=== PATIENT | female | born 1940 | race Caucasian/White ===

== ENCOUNTER 2017-08-12 03:38 | Inpatient (IN) ==
[2017-08-12] MEDS ORDERED: CYCLOBENZAPRINE 10 MG TABLET PO STA (04:30)
[2017-08-12] MEDS ORDERED: HYDROmorphone 2 MG/1 ML VIAL IV STA (04:30)
[2017-08-12] MEDS ORDERED: ONDANSETRON 4 MG/2 ML VIAL IV STA (04:31)
[2017-08-12] MEDS ORDERED: ONDANSETRON 4 MG/2 ML VIAL ONE ×4 (04:34→11:56)
[2017-08-12] MEDS ORDERED: CYCLOBENZAPRINE 10 MG TABLET ONE (04:34)
--- NOTE | 2017-08-12 04:37 | Emergency Department Note ---
INikita Gwan, am scribing for, and in the presence of, Amanda Diaz DO 03:49 . IJoe Debra, DO, personally performed the services described in this documentation, ascribed by Lauro Shelton in my presence, and it is both accurate and complete 437 . Arrival - Arrival Stated Complaint: fall Mode of Arrival: Stretcher Limitations: No Limitations Source: Patient, EMS, Old Records Reviewed, RN Notes Reviewed Time Seen by Provider: 08/12/17 03:44 - History of Present Illness HPI Narrative: Patient is a 76 y/o female, with a hx of multiple Myeloma (with nightly chemotherapy treatment)and Osteoporosis, who presents to the ED with a c/o edema and pain to right ankle/foot with an onset this morning s/p fall. Patient stated that she got out of bed to get a glass of water when she fell causing injury to her right ankle/foot area. Daughter confirmed that patient walks with a walker daily and that the patient suffers from chronic back pain. Patient confirmed that s/p fall, she was unable to get up by herself. Patient denies hitting her head or any periods of LOC. No other problems/complaints reported in ED. Onset (ago): minute(s) Consistency: constant Severity: moderate Allergies/Adverse Reactions: Allergies Allergy/AdvReac Type Severity Reaction Status Date / Time aspirin Allergy Unknown/Unable Verified 08/12/17 04:02 to obtain morphine Allergy Unknown/Unable Verified 08/12/17 04:02 to obtain Review of System - Review of System 12 point system: reviewed and no additional remarkable complaints except as stated - Review of System Constitutional: Absent: chills, fever Head/Ears/Nose/Throat: Absent: earache, epistaxis Respiratory: Absent: cough, wheezing Cardiovascular: Absent: chest pain, palpitations, orthopnea Musculoskeletal: Present: as per HPI, other (pain in right ankle and right foot) . Absent: arm pain, back pain, leg pain, neck pain Medical,Surgical,& Family Hx - Medical History Cardio: History of: Hypertension Endocrine: History of: Dyslipidemia No history of: Diabetes Mellitus (IDDM), Diabetes Mellitus (NIDDM) Respiratory: No history of: Asthma, COPD Renal: No history of: Renal Problems Gastrointestinal: History of: GERD Hematology: History of: Bleeding Problems (MYELOMA- AT THIS TIME - ON TREATMENT) - Surgical History HEENT Surgeries: Surgical HX of: Tonsilectomy & Adenoidectomy Abdominal Surgeries: Surgical HX of: Appendectomy Reproductive Surgeries: Surgical HX of;: Hysterectomy - Social History Smoking Status: Never smoker Exam Vital Signs: Vital Signs Temperature 100.5 F H 08/12/17 03:38 Pulse Rate 90 08/12/17 03:38 Respiratory Rate 20 08/12/17 03:38 Blood Pressure 153/79 08/12/17 03:38 O2 Sat by Pulse Oximetry 91 L 08/12/17 03:38 - General General appearance: alert, in no apparent distress, other (Patient is pale.) - Head Head exam: Present: atraumatic, normocephalic - Eye Eye exam: Present: normal appearance, PERRL, EOMI - ENT ENT exam: Present: normal oropharynx, mucous membranes moist, TM's normal bilaterally, normal external ear exam - Neck Neck exam: Present: full ROM, trachea midline. Absent: tenderness - Chest Chest inspection: Present: symmetric chest wall rise. Absent: tenderness - Respiratory Respiratory exam: Present: normal lung sounds bilaterally. Absent: respiratory distress - Cardiovascular Cardiovascular exam: Present: regular rate, normal rhythm, normal heart sounds. Absent: murmur - Abdominal Exam Abdominal exam: Present: soft, normal bowel sounds. Absent: distention, tenderness - Extremities Exam Extremities exam: Present: full ROM, tenderness (Patient has mild edema noted to right foot/ankle area. Patient is able to wiggle toes and good pulses are noted. ) - Back Exam Back exam: Present: full ROM. Absent: tenderness - Neurological Exam Neurological exam: Present: alert, oriented X3, CN II-XII intact. Absent: motor sensory deficit - Psychiatric Psychiatric exam: Present: normal affect, normal mood - Skin Skin exam: Present: other (Patient has mild edema noted to right foot/ankle area. Patient is pale in appearance.) Course Course Narrative: spoke with DR Tidwell who will see pt in hospital , pt will be kept NPO. pt will be admitted to hospitalist service . awaiting labs. Disposition Clinical Impression: Fibula fracture Case discussed with: patient, patient's family Disposition: Still a Patient Condition: Stable Time of Disposition: 06:25
[2017-08-12] MEDS ORDERED: HYDROmorphone 2 MG/1 ML VIAL ONE ×2 (05:22→11:56)
[2017-08-12 06:47] LABS: Basophils % 0.6 % (0.0-0.8); Eosinophils % 0.6 % (0.00-10.9); Hematocrit 33.3 VOL% (35.7-47.0); Hemoglobin 11.1 GM/DL (12.0-16.0); Immature Granulocytes % 0.3 %; Immature Granulocytes Absolute 0.01 #; Lymphocytes # 0.6 10*3/uL (1.4-4.0); Lymphocytes % 16.4 % (21.3-54.2); Mean Corpuscular HGB Conc 33.3 GM/DL (32-36); Mean Corpuscular Hemoglobin 31 PG (27-34); Mean Corpuscular Volume 93.8 FL (87-102); Mean Platelet Volume 9.9 FL (9.6-12.0); Neutrophils # 1.7 10*3/uL (1.4-7.4); Neutrophils % 51.1 % (38.7-73.9); Platelet Count 178 T/CUMM (130-400); Red Blood Count 3.55 MC/CUMM (3.8-5.5); Red Cell Distribution Width 14.5 % (9.3-17.3); White Blood Count 3.4 T/CUMM (4-12)
[2017-08-12 06:50] LABS: PT Patient Result 10.6 SECS
--- NOTE | 2017-08-12 06:54 | XRay Report ---
XR chest 1V portable Indication: Respiratory preoperative evaluation Comparison: None available Findings: The heart and mediastinum are normal in size and configuration. The pulmonary vascularity is normal in caliber. Lung volumes are increased with prominent bronchial markings. Linear densities are present in the lung bases. No other lung infiltrates, effusions, pneumothorax or other abnormality is demonstrated. Impression: Chronic lung changes. Linear densities lung bases could indicate scarring or atelectasis. PROCEDURE INTERPRETED AT [facility] DEPARTMENT OF RADIOLOGY Final Report Signed by: Dr. Zia Castro
--- NOTE | 2017-08-12 07:08 | Orthopedic Consult Note ---
History of Present Illness Chief complaint: Fracture dislocation right ankle History of present illness: Ms. Schneider is a 76 year old female See dictated reports Diagnosis: Trimalleolar fracture dislocation right ankle Plan: Recommended ORIF. Discussed. Agrees Allergies Allergy/AdvReac Type Severity Reaction Status Date / Time aspirin Allergy Unknown/Unable Verified 08/12/17 04:02 to obtain morphine Allergy Unknown/Unable Verified 08/12/17 04:02 to obtain Medical,Surgical,& Family Hx - Medical History Cardio: History of: Hypertension Endocrine: History of: Dyslipidemia No history of: Diabetes Mellitus (IDDM), Diabetes Mellitus (NIDDM) Respiratory: No history of: Asthma, COPD Renal: No history of: Renal Problems Gastrointestinal: History of: GERD Musculoskeletal: History of: Back/Neck Problems Hematology: History of: Bleeding Problems (MYELOMA- AT THIS TIME - ON TREATMENT) - Surgical History HEENT Surgeries: Surgical HX of: Tonsilectomy & Adenoidectomy Abdominal Surgeries: Surgical HX of: Appendectomy Reproductive Surgeries: Surgical HX of;: Hysterectomy - Social History Smoking Status: Never smoker Frequency of Alcohol Use: None Type of Drug Use: None Exam - Constitutional Vitals: Period Temp Pulse Resp BP Sys/Hernandez Pulse Ox Last 24 Hr 100.5 F-100.5 F 90-90 20-20 153-153/79-79 91 Results - Labs CBC & BMP: 08/12/17 06:25
[2017-08-12 07:10] LABS: Band Neutrophils 1 % (0-10); Eosinophils 1 % (0-10); Hypochromasia 1+; Lymphocytes 19 % (20-55); Ovalocytes Slight; Platelet Estimate Normal; Segmented Neutrophils 54 % (50-85); Total Cells Counted 100
[2017-08-12 07:12] LABS: Alanine Aminotransferase 18 U/L (13-56); Albumin 2.9 G/DL (3.4-5.0); Alkaline Phosphatase 53 U/L (45-117); Aspartate Amino Transferase 16 U/L (0-37); Bilirubin,Total < 0.39 MG/DL (0.2-1.0); Blood Urea Nitrogen 17 MG/DL (7-18); Calcium 8.2 MG/DL (8.5-10.1); Glucose 79 MG/DL (74-106); Osmolality,Calculated 281.3 MOS/KG (273-304); Potassium 3.9 MMOL/L (3.5-5.1); Sodium 141 MMOL/L (136-145); Total Protein 5.1 G/DL (6.4-8.3)
[2017-08-12 07:20] LABS: Amorphous Crystals,Urine Few /HPF (Few); Apearance,Urine CLOUDY (Clear); Bilirubin,Urine Negative (Negative); Blood, Urine Negative (Negative); Glucose,Urine (UA) Negative (Negative); Ketones,Urine Negative (Negative); Nitrite,Urine Negative (Negative); Protein,Urine 30 MG/DL; RBC,Urine 1 /HPF (0-4); Urine Color Yellow (Yellow); Urine Specific Gravity 1.008 (1.001-1.035); Urine Urobilinogen < 2.0 EU/DL (0.2-1.0)
[2017-08-12] MEDS ORDERED: ceFAZolin 1,000 MG VIAL ONE (07:42)
--- NOTE | 2017-08-12 08:04 | CT Report ---
CT right ankle without contrast August 12, 2017 Indication: Fracture Comparison radiographs from same date at 1946 hours Findings: Comminuted distal fibular fracture with coronal fracture through the posterior tibial plafond. Mildly displaced transverse fracture through the medial malleolus. Hematoma at the fracture sites. No evidence of tendinous entrapment. Tibiotalar alignment is maintained on nonweightbearing imaging. No additional fractures are demonstrated. Impression: Comminuted trimalleolar fracture PROCEDURE INTERPRETED AT [facility] DEPARTMENT OF RADIOLOGY Final Report Signed by: Pato Mcnulty
--- NOTE | 2017-08-12 08:06 | XRay Report ---
Exam: 3 view right ankle Exam date: August 12, 2017 at 0421 hours Indication: Fall with deformity and pain Comparison: No relevant comparisons Findings: Comminuted trimalleolar fracture with widening of the medial mortise. Diffuse soft tissue swelling.. Impression: 1. Comminuted trimalleolar fracture with mortise instability PROCEDURE INTERPRETED AT [facility] DEPARTMENT OF RADIOLOGY Final Report Signed by: Pato Mcnulty
--- NOTE | 2017-08-12 08:13 | Hospitalist History & Physical ---
History of Present Illness Chief complaint: right ankle pain and swelling after a fall History of present illness: Ms. Schneider is a 76 year old female who presents with a fall and right ankle pain and swelling. She was found to have an ankle fracture. She states that this morning around 2am, she got out of bed to get a glass of water. She fell on the floor. Her daughter heard the fall, and the daughter states that she found her mother on her left side. Patient denies any CP/palpitations/vision changes/SOB/dizziness/lightheadness before or after the fall. There were no LOC/ bowel,bladder incontinence/tongue biting or injury. Patient did not hit her head. Daughter states that patient has been more unsteady since resuming chemotherapy for her multiple myeloma and since taking the pain medications. Patient uses a walker. She has multiple myeloma and has been on thalidomide/ dexamethasone for the past 3 months. She was just started on velcade 3 days ago. She receives care from Dr. Smitha Bond at the [facility] in [place], [place]. Patient was just seen three days ago, and her fentanyl patch was increased from 150mcg to 175mcg. Patch change starts today. Patient has a low grade fever and is requiring 3L of oxygen. Patient denies any fevers/chills/cough/dysuria/diarrhea. Daughter states that patient cannot walk 1 block without SOB or CP. She cannot walk up a flight of stairs. She has been experiencing more dyspnea upon exertion. She states that over the past 3 months, she has been more deconditioned. Before then, she was able to walk longer distances. She does not clean around the house. She just does some mild cleaning in her room. Yesterday , she needed help with showering. She is able to feed herself. Home Medications Medication Instructions Recorded Confirmed Type Bortezomib [Velcade] 0 mg SUBCUT Q7DAY 08/12/17 08/12/17 History Cyanocobalamin (Vitamin B-12) 1,000 mcg PO DAILY 08/12/17 08/12/17 History [Vitamin B-12] Dexamethasone [Dexamethasone Tab] 20 mg PO DAILY 08/12/17 08/12/17 History Furosemide Tab [Lasix Tab] 20 mg PO DAILY 08/12/17 08/12/17 History Gabapentin Cap/Tab [Neurontin 600 mg PO BID 08/12/17 08/12/17 History Cap/Tab] Hydrocodone/Acetaminophen [Lortab 1 each PO Q4-6H PRN 08/12/17 08/12/17 History 10-325 mg Tablet] Metoprolol Tartrate 25 mg PO BID 08/12/17 08/12/17 History Multivitamin [Multivitamins] 1 each PO DAILY 08/12/17 08/12/17 History Omeprazole [Prilosec] 20 mg PO DAILY 08/12/17 08/12/17 History Potassium Chloride 10 meq PO DAILY 08/12/17 08/12/17 History Simvastatin [Zocor] 80 mg PO BEDTIME 08/12/17 08/12/17 History Thalidomide [Thalomid] 100 mg PO BEDTIME 08/12/17 08/12/17 History Zoledronic Acid [Zometa] 4 mg IV DIRECTED 08/12/17 08/12/17 History amLODIPine [Norvasc] 10 mg PO DAILY 08/12/17 08/12/17 History fentaNYL [Fentanyl 100 mcg/hr 1 patch TRANSDERM Q3DAY 08/12/17 08/12/17 History Patch] fentaNYL [Fentanyl 75 mcg/hr Patch] 1 patch TRANSDERM Q3DAY 08/12/17 08/12/17 History Allergies Allergy/AdvReac Type Severity Reaction Status Date / Time aspirin Allergy Unknown/Unable Verified 08/12/17 04:02 to obtain morphine Allergy Unknown/Unable Verified 08/12/17 04:02 to obtain Medical,Surgical,& Family Hx - Medical History Cardio: History of: Hypertension Endocrine: History of: Dyslipidemia, Endocrine Problems (osteoporosis) No history of: Diabetes Mellitus (IDDM), Diabetes Mellitus (NIDDM) Respiratory: No history of: Asthma, COPD Renal: No history of: Renal Problems Gastrointestinal: History of: GERD Musculoskeletal: History of: Back/Neck Problems Hematology: History of: Anemia (b12 deficiency), Bleeding Problems (MYELOMA- AT THIS TIME - ON TREATMENT), Hematologic Cancer (multiple myeloma) - Surgical History HEENT Surgeries: Surgical HX of: Tonsilectomy & Adenoidectomy Abdominal Surgeries: Surgical HX of: Appendectomy Reproductive Surgeries: Surgical HX of;: Hysterectomy - Social History Smoking Status: Never smoker Frequency of Alcohol Use: None Type of Drug Use: None 12 point system: reviewed and no additional remarkable complaints except as stated Exam - Constitutional Vitals: Period Temp Pulse Resp BP Sys/Hernandez Pulse Ox Last 24 Hr 100.5 F-100.5 F 90-90 20-20 153-153/79-79 91 General appearance: no acute distress, over weight - Head Head exam: Present: normal inspection - Eye Eye exam: Present: EOMI. Absent: scleral icterus Pupils: Present: SEJAL - ENT ENT exam: Present: other (dry oral mucosa, dentures) - Respiratory Respiratory exam: Present: clear to auscultation bilaterally. Absent: rales, rhonchi, wheezes - Cardiovascular Cardiovascular exam: Present: regular rate and rhythm. Absent: diastolic murmur , systolic murmur - GI/Abdominal GI/Abdominal exam: Present: normal bowel sounds, soft. Absent: tenderness - Extremities Exam Extremities exam: Present: edema (1-2+ edema in both LEs, right ankle: significant swelling, tenderness, and ecchymosis in medial malleoloar area; able to move toes; 2+ distal pulses; foot is warm but not increased compared to left) Results - Labs CBC & BMP: 08/12/17 06:25 08/12/17 06:25 - Impressions Patient is a 76 yo female who fell and suferred a right ankle fracture. Active Issues: 1. Mechanical fall 2. Trimalleoloar fracture dislocation of right ankle. She is undergoing an intermediate risk surgery and she has poor functional status. Will obtain an EKG. It is not clear the reason for her LANDRY. Risk is at least intermediate for now. Her daughter has been informed and understands. 3. Hypoxia, patient's o2 saturations were 92% on 3L. Cxray showing possible atelectasis 4. Low grade fevers 5. Comorbid conditions: chronic low back pain, chronic opioid use, multiple myeloma, HTN, dyslipidemia, GERD, osteoporosis, b12 deficiency Plan: -noted plan for ORIF today. Will obtain an EKG. Stress dose of hydrocortisone since she has been on dexamethasone 20mg qwk for the past 3 months. Pain control. Will control pain with parenteral agents for now. Given her fevers, will avoid fentanyl patch for now since there could be increased absorption in febrile states. Monitor h/h. Monitor rest of cell lines given recent chemotherapy. PT/OT. Vitamin D and calcium. Monitor o2 saturations and encourage IS. May need CT with PE protocol if hypoxia continues. Continue rest of home medications as appropriate. DVT and GI prophalaxis. Will start lovenox as long as it is okay from a bleeding standpoint and with orthopedics. The plan of care may be modified as more information becomes available. - Diagnostic Findings Procedure: Chest x-ray: report reviewed by me (chronic lung changes), X-ray: pending (ankle: trimalleoloar fraacture discolation of right ankle)
--- NOTE | 2017-08-12 08:16 | XRay Report ---
XR foot 2V RT Indication: Pain after falling injury Comparison: None available Findings: There is fracture dislocation of the ankle, incompletely visualized. No other evidence of fracture seen. The alignment of the joints appears normal. Mild first metatarsophalangeal joint degenerative change is present. No soft tissue abnormality is seen. Impression: Fracture dislocation of ankle, see ankle x-ray. No other fracture seen. PROCEDURE INTERPRETED AT [facility] DEPARTMENT OF RADIOLOGY Final Report Signed by: Dr. Zia Castro
[2017-08-12] MEDS ORDERED: HYDROmorphone 2 MG/1 ML VIAL IV PRN ×2 (08:33→12:21)
[2017-08-12] MEDS ORDERED: MIDAZOLAM 2 MG/2 ML VIAL ONE ×2 (08:59→11:54)
[2017-08-12] MEDS ORDERED: fentaNYL 100 MCG/2 ML VIAL ONE ×2 (08:59→11:54)
[2017-08-12] MEDS ORDERED: PROPOFOL 200 MG/20 ML VIAL IV ONE ×2 (09:00→11:55)
[2017-08-12] MEDS ORDERED: ROCURONIUM 100 MG/10 ML VIAL IV ONE (09:00)
[2017-08-12] MEDS ORDERED: ROPIVACAINE 0.5% 30 ML VIAL ONE (09:00)
[2017-08-12] MEDS ORDERED: PHENYLEPHRINE 1 MG/10 ML SYRINGE IV ONE (09:00)
[2017-08-12] MEDS ORDERED: methylPREDNISolone SOD SUC 125 MG/2 ML VIAL ONE (09:00)
[2017-08-12] MEDS ORDERED: LIDOCAINE 100 MG/5 ML SYRINGE ONE (09:00)
--- NOTE | 2017-08-12 10:59 | Anesthesia Procedures ---
Anesthesia Procedures - Nerve Blocks Nerve Block Consent: Requested by surgeon for postoperative pain control Surgical Procedure: right ORIF of ankle Main Anesthetic: general anesthesia Location: other Position: supine (slight bump to left) Type of Block: Right: Popliteal Patient Consent: Patinet consented for above nerve block., Risks and benefits were discussed with patient,including infection,, bleeding,injury to surrounding structures, seizure, temporary nerve, Patient understands and accepts potential risks/benefits and agrees to ASA Monitors on: pulse oximetry, EKG, BP cuff, oxygen via Local Anesthetic: Local (1.5% Lidocaine) used to numb skin, 0.5% Bupivicaine Ultrasound Used to: Recognize Landmarks Inject slowly in 5cc increments with:: Negative aspitation of heme Patient vitals signs stable throughout procedure.: Patient tolertaed the procedure well with no apparent complications.
[2017-08-12] MEDS ORDERED: MAGNESIUM HYDROXIDE SUSP 30 ML UDCUP PO PRN (11:36)
[2017-08-12] MEDS ORDERED: LACTULOSE 20 GM/30 ML UDCUP PO PRN (11:36)
[2017-08-12] MEDS ORDERED: ONDANSETRON 4 MG/2 ML VIAL IV PRN ×2 (11:36→12:21)
[2017-08-12] MEDS ORDERED: BISACODYL 10 MG SUPP RECTAL PRN (11:36)
[2017-08-12] MEDS ORDERED: PROMETHAZINE 25 MG/1 ML VIAL IM PRN (11:36)
[2017-08-12] MEDS: HYDROmorphone 2 MG/1 ML VIAL IV PRN ×4 (11:40→22:15)
--- NOTE | 2017-08-12 11:52 | Anesthesia Post-Op ---
Anesthesia Post OP - Post Ansesthetic Evaluation Patient seen in post op: Yes Resp: within normal limits CV: within normal limits Mental: within normal limits Temp: within normal limits [id number]-[id number]: within normal limits Nausea and Vomiting: within normal limits Pain: within normal limits
[2017-08-12] MEDS ORDERED: SEVOFLURANE 1 UNIT/15 MINUTE INH ONE (11:54)
--- NOTE | 2017-08-12 12:01 | XRay Report ---
Exam: XR ankle 3V RT Exam date 08/12/2017 1014 AM Indication: Postop trimalleolar fixation Comparison: No relevant comparisons Findings: 4 static interoperative fluoroscopic images submitted for interpretation. Fluoroscopy time recorded at 4.4 seconds with 0.82510 mGym2 Patient is status post open reduction internal fixation of trimalleolar fracture. Lateral plate stabilizes distal fibula with percutaneous screws transfixing the medial malleolus.. Alignment is anatomic. No evidence of hardware failure. Postoperative changes within the adjacent soft tissues. Impression: Expected postoperative appearance of right ankle trimalleolar fracture fixation PROCEDURE INTERPRETED AT [facility] DEPARTMENT OF RADIOLOGY Final Report Signed by: Pato Mcnulty
[2017-08-12] MEDS: CALCIUM (CARBONATE)/VITAMIN D 600 MG-400 UNIT TABLET PO SCH ×2 (14:19→21:16)
[2017-08-12] MEDS: ENOXAPARIN 40 MG/0.4 ML SYRINGE SUBCUT SCH (14:20)
[2017-08-12] MEDS: METOPROLOL TARTRATE 25 MG TABLET PO SCH ×2 (14:20→21:16)
[2017-08-12] MEDS: amLODIPine 5 MG TABLET PO SCH (14:20)
[2017-08-12] MEDS: PANTOPRAZOLE 40 MG VIAL IV SCH (14:20)
[2017-08-12] MEDS: GABAPENTIN 600 MG TABLET PO SCH ×2 (14:21→21:16)
[2017-08-12] MEDS: CYANOCOBALAMIN 100 MCG TABLET PO SCH (14:21)
[2017-08-12] MEDS: LACTATED RINGERS 1,000 ML IV SCH (15:09)
[2017-08-12] MEDS: HYDROCORTISONE 100 MG VIAL IV SCH ×2 (15:20→21:17)
--- NOTE | 2017-08-12 16:47 | Consultation ---
DATE OF CONSULT: 08/12/2017 HISTORY: A 76-year-old white female, ambulator, fell at home early this morning. She had immediate pain with deformity about right ankle and was brought to [facility], where she was francesco gnosed with trimalleolar fracture dislocation. Due to her numerous medical problems including underg oing treatment for myeloma, she has been admitted to the medical service. I have been asked to evalu ate regarding orthopedic injury. PHYSICAL EXAMINATION GENERAL: Thin, white female, who is in mild discomfort secondary to right ankle. No other complaint s. EXTREMITIES: She has no pain with gentle range of motion about either upper extremity or by the left lower. On the right side, there is mild deformity about the right ankle with some ecchymosis. No s kin changes. No open injury. She can wiggle her toes. Capillary refill is brisk. No pain proximal to the knee or about the right hip. Radiographs confirm a trimalleolar fracture dislocation, right ankle. IMPRESSION: TRIMALLEOLAR FRACTURE DISLOCATION, RIGHT ANKLE. PLAN: I have discussed her and her daughter, the diagnosis, treatment recommendations including need for open reduction and internal fixation. She will made n.p.o. later this morning, we will proceed with ORIF. We have also discussed the postoperative course and the need for physical therapy to safe ly mobilize, nonweightbearing. They appeared to understand and agree with the plan.
--- NOTE | 2017-08-12 16:47 | Operative Note ---
DATE: 08/12/2017 PREOPERATIVE DIAGNOSIS: TRIMALLEOLAR FRACTURE, RIGHT ANKLE. POSTOPERATIVE DIAGNOSIS: SAME. OPERATIVE PROCEDURE: ORIF, RIGHT ANKLE, TRIMALLEOLAR. SURGEON: Margarito Saucedo Jr., MD ANESTHESIA: General. INDICATIONS: A 76-year-old white female, fell earlier this morning, sustaining a displaced trimalleo lar ankle fracture dislocation. I discussed with her and her family the need for ORIF. She presents for procedure. OPERATIVE PROCEDURE: The patient was taken to the operating room and under general anesthetic, posit ioned in supine position. The right lower extremity positioned, prepped and draped in a usual steril e manner. She received the Ancef preoperatively. The limb was elevated, exsanguinated, and tourniqu et inflated to 300 mmHg. A longitudinal incision was made laterally over the right ankle. Sharp dis section was carried down through skin and subcutaneous tissue. The fracture hematoma was evacuated a nd the distal fibula fracture was identified and reduced and secured first with an interfragmentary s crew front to back and then a 10-hole plate was then contoured to fit along the lateral aspect to act as neutralization plate. The medial malleolus was then exposed through a small incision with carefu l blunt dissection. The talar dome looked good with no defect. The wound was irrigated, the fractur e reduced and secured with two 4.0 malleolar screws. Fluoroscopy was brought in to confirm reduction . The posterior malleolar fragment was also reduced anatomic. All wounds were irrigated and closed in layers using 0-Vicryl and 2-0 Vicryl and tisha. Sterile dressing and posterior splint was appli ed. Tourniquet was deflated at 48 minutes. She was taken to recovery room in stable condition.
[2017-08-12] MEDS ORDERED: SIMVASTATIN 80 MG TABLET PO SCH (21:00)
[2017-08-12] MEDS: ATORVASTATIN 40 MG TABLET PO SCH (21:16)
--- NOTE | 2017-08-13 06:49 | EKG Report ---
Stationary ECG Study [facility] ER Test Date: 08/12/2017 7:36:40 AM Pat Name: LIZ JOEL Department: Room: 323 Gender: F Rn Observation: : 1940 Requested by: Amanda Diaz Order Number: [id number] Reading MD: BELEM ORDONEZ Intervals [place] Rate: 68 P: 269 TN: 190 QRS: 75 QRSD: 98 T: -21 QT: 408 QTc: 425 Interpretive Statements SINUS RHYTHM ABNORMAL QRS-T ANGLE Electronically Signed On 08-13-17 11:19:57 CDT by BELEM ORDONEZ [email or web address]
[2017-08-13 07:00] LABS: Calcium 7.8 MG/DL (8.5-10.1); Free T4 (Free Thyroxine) 1.27 NG/DL (0.76-1.46); Magnesium 2.3 MG/DL (1.8-2.4); Thyroid Stimulating Hormone 0.515 uIU/ml (0.358-3.74)
[2017-08-13 07:20] LABS: Hematocrit 33.7 VOL% (35.7-47.0); Hemoglobin 10.6 GM/DL (12.0-16.0); Immature Granulocytes % 0.7 %; Immature Granulocytes Absolute 0.03 #; Lymphocytes # 0.6 10*3/uL (1.4-4.0); Lymphocytes % 13.1 % (21.3-54.2); Mean Corpuscular HGB Conc 31.5 GM/DL (32-36); Mean Corpuscular Hemoglobin 31 PG (27-34); Mean Corpuscular Volume 99.7 FL (87-102); Mean Platelet Volume 10.6 FL (9.6-12.0); Neutrophils # 2.8 10*3/uL (1.4-7.4); Neutrophils % 64.2 % (38.7-73.9); Platelet Count 151 T/CUMM (130-400); Red Blood Count 3.38 MC/CUMM (3.8-5.5); Red Cell Distribution Width 14.3 % (9.3-17.3); White Blood Count 4.4 T/CUMM (4-12)
[2017-08-13 08:03] LABS: Hypochromasia Slight; Lymphocytes 19 % (20-55); Platelet Estimate Adequate; Segmented Neutrophils 73 % (50-85); Total Cells Counted 100
[2017-08-13] MEDS: METOPROLOL TARTRATE 25 MG TABLET PO SCH (08:47)
[2017-08-13] MEDS: PANTOPRAZOLE 40 MG VIAL IV SCH (08:54)
[2017-08-13] MEDS ORDERED: fentaNYL 12 MCG/HR PATCH TRANSDERM SCH (09:00)
--- NOTE | 2017-08-13 09:08 | Hospitalist Progress Note ---
Hospitalist: Subjective Interval history: Patient underwent ORIF of right ankle. Yesterday, daughter noted signficant pain. Currently, pain is better controlled. Daughter wants to restart fentanyl patch. Patient has no complaints. She denies any SOB or CP. Exam - Constitutional Vitals: Period Temp Pulse Resp BP Sys/Hernandez Pulse Ox Last 24 Hr 97.0 F-100 F 49-74 16-20 91-159/46-73 91-97 General appearance: no acute distress, over weight - Head Head exam: Present: normal inspection - Eye Eye exam: Present: EOMI Pupils: Present: SEJAL - Respiratory Respiratory exam: Present: clear to auscultation bilaterally. Absent: rales, rhonchi, wheezes - Cardiovascular Cardiovascular exam: Present: bradycardia (regular rhythm) - GI/Abdominal GI/Abdominal exam: Present: normal bowel sounds, soft. Absent: tenderness - Extremities Exam Extremities exam: Present: edema - Neurological Exam Neurological exam: Present: alert (s/p right ORIF with dressing in place; 1-2+ BLE, edema in left ankle; normal ROM, no area of ecchymosis), oriented X3 - Psychiatric Psychiatric exam: Present: normal affect, normal mood Results - Labs CBC & BMP: 08/13/ 06:12 08/13/ 06:12 - Impressions Active Issues: 1. Mechanical fall 2. Trimalleolar fracture dislocation of right ankle s/p ORIF, POD#1 3. Hypoxia: patient is still requiring 3L of oxygen; suspect atelectasis; however, given history of multiple myeloma, will check for PE 4. Left ankle swelling: daughter is concerned about fracture; so, will obtain x- ray 5. Low grade fevers, resolved 6. Hypotension: may be 2nd to adrenal insufficiency since she has been on decadron in the past. She was started on hydrocortisone on yesterday. Will increase. Will also give 1L of fluids. 7. Chronic pain: on fentanyl patch; as long as blood pressure is adequate, will start with low dose patch Plan: as noted above + continue current care; PT/OT; will likely benefit from rehab; DVT prophalaxis.
[2017-08-13] MEDS ORDERED: SODIUM CHLORIDE 0.9% 100 ML IV ONE (09:25)
[2017-08-13] MEDS ORDERED: SODIUM CHLORIDE 0.9% 1,000 ML IV SCH (09:30)
--- NOTE | 2017-08-13 10:04 | CT Report ---
CT of the chest with intravenous contrast, PE protocol. 80 cc Omni 350. Axial images were obtained with 2-D and 3-D sagittal and coronal reconstructions. Indication: Hypoxia. Shortness of breath. No comparison study. The thyroid gland is normal in size. A hypoechoic mass is suggested in the right lobe. There is no supraclavicular or axillary lymphadenopathy. There is no evidence of pulmonary thromboembolism. The thoracic aorta is of normal caliber with mixed plaque in its wall. The heart is enlarged with left ventricular hypertrophy. There is coronary and mitral calcification. There are small bilateral pleural effusions. No adenopathy is seen. Calcified lymph nodes are seen in the left hilum and there is a calcified granuloma in the left upper lobe. There is atelectasis present within the lung bases. There are air bronchograms seen in both lung bases which could indicate concurrent pneumonia. The osseous structures are severely demineralized, with a mottled appearance. There are numerous thoracic compression fractures, some of which are prominent and some of which have undergone vertebroplasty. Healed rib fractures are also noted. Impression: 1. No evidence of pulmonary thromboembolism. 2. Bilateral basilar atelectasis, and suspected bilateral mild infiltrates. Small bilateral pleural effusions. 3. Cardiomegaly and atherosclerosis. 4. Abnormal appearance of the osseous structures, with a mottled appearance and multiple compression fractures and healed rib fractures. This could be due to severe osteoporosis, but multiple myeloma/metastatic disease is also in the differential The CT exam was performed using one or more of the following dose reduction techniques: Automated exposure control, adjustment of the mA and/or kV according to patient size, or use of iterative reconstruction technique. PROCEDURE INTERPRETED AT [facility] DEPARTMENT OF RADIOLOGY Final Report Signed by: Dr. Dorita Quintero
--- NOTE | 2017-08-13 10:07 | XRay Report ---
Left ankle, 3 views. Indication: Fall, edema and pain. There is marked soft tissue swelling about the ankle. Degenerative changes are noted at the ankle mortise. There are prominent posterior and plantar calcaneal spurs. There is spurring of the dorsal mid and hindfoot. There is a small calcification superior to the anterior talus. This could represent a small evulsion fracture or new osteophyte formation. No lytic or blastic lesions are noted. Impression: Soft tissue swelling. Possible dorsal hindfoot small avulsion fracture. Scattered degenerative changes, moderately severe. PROCEDURE INTERPRETED AT [facility] DEPARTMENT OF RADIOLOGY Final Report Signed by: Dr. Dorita Quintero
[2017-08-13] MEDS: CALCIUM (CARBONATE)/VITAMIN D 600 MG-400 UNIT TABLET PO SCH ×2 (10:27→21:27)
[2017-08-13] MEDS: GABAPENTIN 600 MG TABLET PO SCH ×2 (10:28→21:27)
[2017-08-13] MEDS: CYANOCOBALAMIN 100 MCG TABLET PO SCH (10:28)
[2017-08-13] MEDS: HYDROCORTISONE 100 MG VIAL IV SCH ×3 (10:40→21:24)
[2017-08-13] MEDS: POLYETHYLENE GLYCOL POWDER 17 GM PACK PO SCH (10:42)
--- NOTE | 2017-08-13 12:45 | Orthopedic Progress Note ---
Orthopedics - Subjective Interval history: Mrs. JOEL is a 76-year-old female postop day #1 following ORIF right ankle fracture performed by Dr. Pato Saucedo Junior. She is on the hospital service has a history of multiple myeloma and is managed with fentanyl patches provided through the [facility] system pain management physician. Her daughter is concerned that she is having some withdrawal type type symptoms. She has mild pain with respect to her right ankle. Good capillary refill to all toes. There is some edema present with respect to the contralateral left ankle. An x-ray of the left ankle today is negative for acute fracture dislocation or pathologic bone. She is being mobilized through physical therapy efforts. Mentation: Notify hospitalist of complaint of chest pain and suggest possible pain management consult if available. And knee-high MERE hose left lower extremity for peripheral edema. Exam - Constitutional Vitals: Period Temp Pulse Resp BP Sys/Hernandez Pulse Ox Last 24 Hr 97.0 F-98.8 F 49-72 16-20 91-159/46-73 91-97 Results - Labs CBC & BMP: 08/13/17 06:12 08/13/17 06:12
[2017-08-13] MEDS: LACTATED RINGERS 1,000 ML IV SCH (13:55)
[2017-08-13] MEDS: HYDROmorphone 2 MG/1 ML VIAL IV PRN (15:35)
[2017-08-13] MEDS: ENOXAPARIN 40 MG/0.4 ML SYRINGE SUBCUT SCH (15:54)
[2017-08-13] MEDS: amLODIPine 5 MG TABLET PO SCH (16:44)
--- NOTE | 2017-08-13 18:02 | Event Note ---
This is a delayed entry note. Patient's daughter is concerned that her mother is in acute opioid withdrawal because she is not receiving her home dose of fentanyl 150mcg. Patient was seen about 3pm with nursing field crop farming supervisor, Heather Apple. Patient's daughter states that her mother's symptoms were that she was sweating and was clammy. Daughter states that since patient has received norco about 2pm, withdrawal symptoms are now gone. Education provided. Daughter is aware that patient has been receiving opioid therapy, effects from fentanyl patch will start in 8-12 hours from onset of application, and that dose of fentanyl is limited by patient's hypotension. I don't feel comfortable starting patient at 150mcg (morphine equivalent of 300mg ) after surgery and in the setting of low blood pressures. Her blood pressure was low this morning. It has improved with increased in stress dose steroids and IVFs. Patient appears to be comfortable. She is smiling and joking. She denies any CP or SOB. After discussion, patient's daughter agrees to continue current pain regimen of prn norco and parenteral dilaudid. Will continue fentanyl patch. Dr. Bryant suggested pain medicine consult; so, consult has been placed.
[2017-08-13] MEDS: ATORVASTATIN 40 MG TABLET PO SCH (21:27)
[2017-08-14] MEDS: LACTATED RINGERS 1,000 ML IV SCH ×2 (03:05→23:09)
[2017-08-14 06:21] LABS: Hematocrit 31.5 VOL% (35.7-47.0); Hemoglobin 10.1 GM/DL (12.0-16.0); Immature Granulocytes % 0.4 %; Immature Granulocytes Absolute 0.02 #; Lymphocytes # 0.9 10*3/uL (1.4-4.0); Lymphocytes % 18.5 % (21.3-54.2); Mean Corpuscular HGB Conc 32.1 GM/DL (32-36); Mean Corpuscular Hemoglobin 31 PG (27-34); Mean Corpuscular Volume 95.5 FL (87-102); Mean Platelet Volume 10.4 FL (9.6-12.0); Monocytes # 0.7 10*3/uL (0.11-0.8); Monocytes % 14.1 % (1.7-12.7); Neutrophils # 3.3 10*3/uL (1.4-7.4); Platelet Count 162 T/CUMM (130-400); Red Cell Distribution Width 14.6 % (9.3-17.3); White Blood Count 4.9 T/CUMM (4-12)
[2017-08-14 06:54] LABS: Calcium 8.1 MG/DL (8.5-10.1); Magnesium 2.2 MG/DL (1.8-2.4); Osmolality,Calculated 290.6 MOS/KG (273-304); Potassium 4.1 MMOL/L (3.5-5.1)
[2017-08-14] MEDS ORDERED: FUROSEMIDE 40 MG/4 ML VIAL IV ONE (08:39)
[2017-08-14] MEDS: PANTOPRAZOLE 40 MG VIAL IV SCH (08:53)
[2017-08-14] MEDS: HYDROCORTISONE 100 MG VIAL IV SCH (08:54)
[2017-08-14] MEDS: ENOXAPARIN 40 MG/0.4 ML SYRINGE SUBCUT SCH (08:56)
[2017-08-14] MEDS: POLYETHYLENE GLYCOL POWDER 17 GM PACK PO SCH (08:57)
[2017-08-14] MEDS: GABAPENTIN 600 MG TABLET PO SCH ×2 (08:57→21:01)
[2017-08-14] MEDS: CALCIUM (CARBONATE)/VITAMIN D 600 MG-400 UNIT TABLET PO SCH ×2 (08:57→21:01)
[2017-08-14] MEDS: CYANOCOBALAMIN 100 MCG TABLET PO SCH (09:10)
--- NOTE | 2017-08-14 09:13 | XRay Report ---
Single view the chest. Indication: Shortness of breath. Comparison: August 12, 2017. The heart is enlarged with left ventricular hypertrophy. The pulmonary vasculature is prominent. Bilateral interstitial infiltrates show interval worsening. An alveolar component is developing on the right. No pneumothorax. No pleural effusion. Stable bony structures. Impression: Interval worsening. PROCEDURE INTERPRETED AT [facility] DEPARTMENT OF RADIOLOGY Final Report Signed by: Dr. Dorita uQintero
[2017-08-14] MEDS: HYDROmorphone 2 MG/1 ML VIAL IV PRN (10:17)
--- NOTE | 2017-08-14 10:21 | Hospitalist Progress Note ---
Assessment and Plan (1) Shortness of breath Status: Acute Assessment and plan: At this time IV fluids have been discontinued. Appears to be a volume issue causing shortness of breath. IV fluids have been discontinued. Chest x-ray shows worsening interstitial changes. Current Visit: Yes (2) Volume overload Status: Acute Assessment and plan: IV fluids have been discontinued. Lasix 40 mg IV every 6 hours. Cazares catheter replaced. Current Visit: Yes (3) Fibula fracture Status: Acute Assessment and plan: Now status post fracture repair. Continue with physical therapy. Current Visit: Yes Hospitalist: Subjective Interval history: The patient became more short of breath this morning sats dropped into the upper 80s. Nasal cannula replaced. Follow-up chest x-ray shows worsening infiltrates. Patient's IV fluids have been stopped. She has received 6 mg of Lasix at this time. She will continue with scheduled Lasix every 6 hours for the next 24 hours. Schedule nebulizer treatments have been started. Follow-up chest x-ray has been ordered for tomorrow. CBC BMP in a.m. Patient's had no fevers or chills. Exam - Constitutional Vitals: Period Temp Pulse Resp BP Sys/Hernandez Pulse Ox Last 24 Hr 94.9 F-98.4 F 53-92 16-18 103-141/52-69 89-93 General appearance: normal weight - Head Head exam: Present: normal inspection - Eye Pupils: Present: SEJAL - ENT ENT exam: Present: normal exam - Neck Neck exam: Present: normal inspection - Respiratory Respiratory exam: Present: rales, wheezes - Cardiovascular Cardiovascular exam: Present: regular rate and rhythm - GI/Abdominal GI/Abdominal exam: Present: normal bowel sounds - Extremities Exam Extremities exam: Present: normal inspection - Neurological Exam Neurological exam: Present: alert, oriented X3 - Psychiatric Psychiatric exam: Present: normal affect - Skin Skin exam: Present: normal color Results - Labs CBC & BMP: 08/14/17 06:00 08/14/17 06:00
[2017-08-14] MEDS: FUROSEMIDE 40 MG/4 ML VIAL IV SCH ×3 (10:30→23:32)
[2017-08-14] MEDS ORDERED: ALBUTEROL/IPRATROPIUM 3 ML NEB RESP TX ONE (11:30)
[2017-08-14 12:11] LABS: Apearance,Urine CLEAR (Clear); Bilirubin,Urine Negative (Negative); Blood, Urine Negative (Negative); Glucose,Urine (UA) Negative (Negative); Ketones,Urine Negative (Negative); Nitrite,Urine Negative (Negative); Protein,Urine Negative; RBC,Urine 2 /HPF (0-4); Urine Color Colorless (Yellow); Urine Specific Gravity 1.004 (1.001-1.035); Urine Urobilinogen < 2.0 EU/DL (0.2-1.0); WBC,Urine 1 /HPF (0-6)
[2017-08-14] MEDS: ALBUTEROL/IPRATROPIUM 3 ML NEB RESP TX SCH ×2 (13:36→20:18)
--- NOTE | 2017-08-14 16:22 | Orthopedic Progress Note ---
Orthopedics - Subjective Interval history: Ms. Cole is a 76-year-old female now postop day #2 following ORIF right ankle fracture performed by Dr. Margarito Saucedo Junior. She was having issues with pain control yesterday. Fentanyl patches have been adjusted and she is responding well. After Melvin (pain management) has been consulted. He was able to stand bearing weight on her left lower extremity today with physical therapy but is not ambulated. Globin is 10.1 hematocrit 31.5. She is contemplating discharge to home with home health and PT. Diuretic therapy with Lasix has been initiated and a Cazares catheter has been reinserted. Dr. Saucedo will resume orthopedic follow-up tomorrow. Exam - Constitutional Vitals: Period Temp Pulse Resp BP Sys/Hernandez Pulse Ox Last 24 Hr 97.0 F-98.4 F 53-77 16-18 103-141/52-64 89-96 Results - Labs CBC & BMP: 08/14/17 06:00 08/14/17 06:00
[2017-08-14] MEDS: ATORVASTATIN 40 MG TABLET PO SCH (21:01)
[2017-08-15] MEDS: ALBUTEROL/IPRATROPIUM 3 ML NEB RESP TX SCH ×3 (00:20→14:06)
[2017-08-15] MEDS: FUROSEMIDE 40 MG/4 ML VIAL IV SCH ×2 (06:05→10:34)
--- NOTE | 2017-08-15 06:11 | Pain Management Consult Note ---
Assessment and Plan (1) Chronic pain syndrome Status: Acute Assessment and plan: Patient is currently stable on the patch and oral medications and that IV Dilaudid I will continue those until discharge Current Visit: Yes History of Present Illness Chief complaint: Status post right knee surgery History of present illness: Ms. Schneider is a 76 year old female Patient status post right knee surgery is a chronic pain patient followed by Dr. Bond in [place]. Patient has adequate pain control at this time I checked on her yesterday and patient had appropriate pain medicines ordered. I have seen the patient this morning and discussed the case in detail with her and her son patient seems to be stable as far as pain management is concerned patient is not sure whether she is going home or go to inpatient physical therapy after discharge. I have offered to see her as an outpatient for pain management Home Medications Medication Instructions Recorded Confirmed Type Bortezomib [Velcade] 0 mg SUBCUT Q7D 08/12/17 08/12/17 History Cyanocobalamin (Vitamin B-12) 1,000 mcg PO QAM 08/12/17 08/12/17 History [Vitamin B-12] Dexamethasone [Dexamethasone Tab] 20 mg PO Q7D 08/12/17 08/12/17 History Furosemide Tab [Lasix Tab] 20 mg PO QAM 08/12/17 08/12/17 History Gabapentin Cap/Tab [Neurontin 600 mg PO BID 08/12/17 08/12/17 History Cap/Tab] Hydrocodone/Acetaminophen [Lortab 1 each PO Q4-6H PRN 08/12/17 08/12/17 History 10-325 mg Tablet] Metoprolol Tartrate 25 mg PO QAM 08/12/17 08/12/17 History Multivitamin [Multivitamins] 1 each PO QAM 08/12/17 08/12/17 History Omeprazole [Prilosec] 20 mg PO DAILY PRN 08/12/17 08/12/17 History Potassium Chloride 10 meq PO QAM 08/12/17 08/12/17 History Simvastatin [Zocor] 80 mg PO BEDTIME 08/12/17 08/12/17 History Thalidomide [Thalomid] 100 mg PO BEDTIME 08/12/17 08/12/17 History Zoledronic Acid [Zometa] 4 mg IV DIRECTED 08/12/17 08/12/17 History amLODIPine [Norvasc] 10 mg PO QAM 08/12/17 08/12/17 History fentaNYL [Fentanyl 100 mcg/hr 1 patch TRANSDERM Q3DAY 08/12/17 08/12/17 History Patch] fentaNYL [Fentanyl 75 mcg/hr Patch] 1 patch TRANSDERM Q3DAY 08/12/17 08/12/17 History Allergies Allergy/AdvReac Type Severity Reaction Status Date / Time aspirin Allergy Unknown/Unable Verified 08/12/17 04:02 to obtain morphine Allergy Unknown/Unable Verified 08/12/17 04:02 to obtain Medical,Surgical,& Family Hx - Medical History Cardio: History of: Hypertension Endocrine: History of: Dyslipidemia, Endocrine Problems (osteoporosis) No history of: Diabetes Mellitus (IDDM), Diabetes Mellitus (NIDDM) Respiratory: No history of: Asthma, COPD Renal: No history of: Renal Problems Gastrointestinal: History of: GERD Musculoskeletal: History of: Back/Neck Problems Hematology: History of: Anemia (b12 deficiency), Bleeding Problems (MYELOMA- AT THIS TIME - ON TREATMENT), Hematologic Cancer (multiple myeloma) - Surgical History HEENT Surgeries: Surgical HX of: Tonsilectomy & Adenoidectomy Abdominal Surgeries: Surgical HX of: Appendectomy Reproductive Surgeries: Surgical HX of;: Section (X2), Hysterectomy Orthopedic Surgeries: Surgical HX of;: Orthopedic Surgery (ORIF RIGHT ANKLE) - Family History Family History: Reports;: Family Cancer, Family Heart Disease, Family Hypertension, Family Stroke - Social History Smoking Status: Never smoker Frequency of Alcohol Use: None Type of Drug Use: None 12 point system: reviewed and no additional remarkable complaints except as stated Exam - Constitutional Vitals: Period Temp Pulse Resp BP Sys/Hernandez Pulse Ox Last 24 Hr 97.0 F-98.6 F 56-80 17-18 115-145/54-70 89-97 General appearance: no acute distress - Head Head exam: Present: normal inspection - Eye Eye exam: Present: EOMI Pupils: Present: SEJAL - ENT ENT exam: Present: normal exam Ear exam: Present: intact Mouth exam: Present: normal external inspection - Neck Neck exam: Present: normal inspection - Respiratory Respiratory exam: Present: clear to auscultation bilaterally - Cardiovascular Cardiovascular exam: Present: RRR - GI/Abdominal GI/Abdominal exam: Present: normal bowel sounds - Extremities Exam Extremities exam: Present: other (Right knee is tender) - Back Exam Back exam: Present: normal inspection - Neurological Exam Neurological exam: Present: alert, oriented X3, abnormal gait - Skin Skin exam: Present: normal color Results - Labs CBC & BMP: 08/14/17 06:00 08/14/17 06:00 Lab Results: I have reviewed the past 24 hour labs
[2017-08-15 07:27] LABS: Calcium 8.4 MG/DL (8.5-10.1); Osmolality,Calculated 290.6 MOS/KG (273-304); Potassium 2.9 MMOL/L (3.5-5.1)
--- NOTE | 2017-08-15 08:50 | XRay Report ---
Exam: XR chest 1V portable Date: 08/15/2017 4:00 AM Indication: Shortness of breath increasing infiltrate Comparison: 08/14/2017 Technical: AP Findings: Mild cardiomegaly is present. Low volume effusions with bibasilar atelectatic change and infiltrates are present. Old multiple left upper rib fractures with healed deformity is again noted. Arthritic change present shoulders. Previous vertebral plasty and prior cholecystectomy noted Impression: 1. Persistent bilateral infiltrates atelectatic change and effusions with underlying cardiac enlargement. Overall the findings appear similar to previous exam PROCEDURE INTERPRETED AT [facility] DEPARTMENT OF RADIOLOGY Final Report Signed by: Dr. Augusto Riggs
--- NOTE | 2017-08-15 09:00 | Orthopedic Progress Note ---
Orthopedics - Subjective Interval history: Comfortable splint clean dry and intact awaiting medical clearance before discharge instructed regarding nonweightbearing status. Follow-up as ordered. Exam - Constitutional Vitals: Period Temp Pulse Resp BP Sys/Hernandez Pulse Ox Last 24 Hr 97.0 F-98.6 F 57-80 17-20 115-148/54-77 89-97 Results - Labs CBC & BMP: 08/14/17 06:00 08/15/17 06:31
[2017-08-15] MEDS: POTASSIUM CHLORIDE 20 MEQ TABLET PO SCH ×2 (09:03→14:39)
[2017-08-15] MEDS: CALCIUM (CARBONATE)/VITAMIN D 600 MG-400 UNIT TABLET PO SCH (09:03)
[2017-08-15] MEDS: GABAPENTIN 600 MG TABLET PO SCH (09:04)
[2017-08-15] MEDS: POLYETHYLENE GLYCOL POWDER 17 GM PACK PO SCH (09:04)
[2017-08-15] MEDS: CYANOCOBALAMIN 100 MCG TABLET PO SCH (09:04)
[2017-08-15] MEDS: PANTOPRAZOLE 40 MG VIAL IV SCH (09:06)
[2017-08-15] MEDS: ENOXAPARIN 40 MG/0.4 ML SYRINGE SUBCUT SCH (09:08)
--- NOTE | 2017-08-15 09:50 | Physician Query Form ---
CLICK EDIT DOCUMENT TO SELECT QUERY ANSWER --> OK --> SIGN Joyce Cooper RN, CCDS Certified Clinical Electric Organ Assembler W) [phone] (f) [phone] [email or web address]: Make your selection(s) from the choices in EACH section by typing an "x" and enter comments in the comment section. Please use your independent medical judgment in providing your response. This request does not imply that any particular answer is desired or expected. CLINICAL INDICATORS: (Providers should not edit this section) The medical record indicates that the patient was admitted with an ankle fx, on the 16th: "suspected bilateral mild infiltrates", on the 17th: shortness of breath, volume overload (acute), "sat's dropped into the upper 80's", and the patient was placed on IV Lasix. Based on the above, could you clarify the appropriate diagnosis, if significant , that supports the above abnormalities and additional evaluation, monitoring, and/or treatment rendered: ( ) Patient was monitored or treated for acute pulmonary edema ( ) Patient was not monitored or treated for acute pulmonary edema ( ) Other, please specify: ( ) Clinically unable to determine COMMENTS: PLEASE ALSO DOCUMENT RESPONSE IN PROGRESS NOTES AND/OR DISCHARGE SUMMARY Use of terms such as suspected, likely, or probable (associated with a specific diagnosis that is being evaluated, monitored, or treated as if it exists) are acceptable and can be restated in the discharge summary if not ruled out. MTDD
--- NOTE | 2017-08-15 10:47 | Discharge Summary ---
Hospital Course - Hospital Course Hospital Course: Mrs Schneider has Multiple Myeloma and chronic pain and fell at home and fractured her ankle. She had surgery to repair her trimalleolar fracture and dislocation of the right ankle. Dr Lewis Jones is the orthopedist and she was also seen by Dr Charles from pain management. She had some pulmonary edema yesterday following hydration and responded to lasix with resolution of her hypoxia and the crackles on exam. Her CXR is unchanged. She will follow up with Dr Saucedo in clinic and with the [facility] who provides her primary care. She will arrange follow up with her [place] oncologist in [place]. She will need a nonrolling walker. She has been instructed in nonweightbearing status. She will have home health. - Time spent with patient Time with patient DS: Greater than 30 minutes (exam and assessment, discharge planning, medicine reconciliation, documentation.) Diagnosis - Discharge Diagnosis (1) Multiple myeloma Status: Chronic (2) Fibula fracture Status: Resolved (3) Volume overload Status: Resolved (4) Chronic pain syndrome Status: Chronic Specialty Discharge - Follow Up or Referrals Follow up with: Margarito Saucedo Jr., MD [Physician] - 08/22/17 2:15 pm [place], in [place] [Other] (1 week with potassium check) [place], oncologist [Other] (patient to contact her about treatment schedule) Discharge Plan - Discharge Data Disposition: Home Health Service Condition at Discharge: Stable Discharge Diet: heart healthy Activity: ambulate only with your walker (nonweightbearing instructions per Dr Lewis Jones) - Discharge Medications New Polyethylene Glycol Powder [Miralax] 17 gm PO DAILY PRN PRN Reason: constipation Calcium (Carb)/Vit D 600-400 [Caltrate 600 + D] 1 tablet PO BID tablet Continue fentaNYL [Fentanyl 75 mcg/hr Patch] 1 patch TRANSDERM Q3DAY fentaNYL [Fentanyl 100 mcg/hr Patch] 1 patch TRANSDERM Q3DAY Dexamethasone [Dexamethasone Tab] 20 mg PO Q7D Zoledronic Acid [Zometa] 4 mg IV DIRECTED Multivitamin [Multivitamins] 1 each PO QAM Thalidomide [Thalomid] 100 mg PO BEDTIME Hydrocodone/Acetaminophen [Lortab 10-325 mg Tablet] 1 each PO Q4-6H PRN PRN Reason: Pain Simvastatin [Zocor] 80 mg PO BEDTIME Omeprazole [Prilosec] 20 mg PO DAILY PRN PRN Reason: Reflux amLODIPine [Norvasc] 10 mg PO QAM Gabapentin Cap/Tab [Neurontin Cap/Tab] 600 mg PO BID Metoprolol Tartrate 25 mg PO QAM Bortezomib [Velcade] 0 mg SUBCUT Q7D Potassium Chloride 10 meq PO QAM Cyanocobalamin (Vitamin B-12) [Vitamin B-12] 1,000 mcg PO QAM Furosemide Tab [Lasix Tab] 20 mg PO QAM - Follow Up or Referral Follow Up: Margarito Saucedo Jr., MD [Physician] - 08/22/17 2:15 pm - Forms/Instructions Exam - Constitutional Vitals: Period Temp Pulse Resp BP Sys/Hernandez Pulse Ox Last 24 Hr 97.0 F-98.6 F 57-80 17-20 115-148/54-77 89-98 General appearance: normal weight, no acute distress - Eye Eye exam: Present: EOMI. Absent: scleral icterus - Respiratory Respiratory exam: Present: clear to auscultation bilaterally - Cardiovascular Cardiovascular exam: Present: regular rate and rhythm - GI/Abdominal GI/Abdominal exam: Present: normal bowel sounds, soft - Extremities Exam Extremities exam: Present: other (right ankle casted). Absent: edema - Neurological Exam Neurological exam: Present: alert, oriented X3 - Skin Skin exam: Present: warm, dry Discharge Results Labs on day of discharge: Labs from last 24 hours 08/15/17 08/14/17 06:31 11:40 Sodium 146 H Potassium 2.9 L Chloride 105 Carbon Dioxide 34 H Anion Gap 9.9 BUN 18 Creatinine 1.00 GFR Calculation 58 BUN/Creatinine Ratio 18.00 Glucose 82 Calculated Osmolality 290.6 Calcium 8.4 L Urine Color Colorless Urine Appearance Clear Urine pH 6.0 Ur Specific [place] 1.004 Urine Protein Negative Urine Glucose (UA) Negative Urine Ketones Negative Urine Blood Negative Urine Nitrate Negative Urine Bilirubin Negative Urine Urobilinogen < 2.0 H Urine Leukocytes Trace Urine RBC 2 Urine WBC 1 Ur Culture Indicated? Not indicated DS: Provider Date of admission: 08/12/17 07:26 Primary care physician: Ellen South Attending physician on admission: Gosia Paz MD Consults: 08/12/17 09:29 Consult to Occupational Therapy [CONS] Routine Reason for Occupational Therapy: Evaluate and Treat Consult to Physical Therapy [CONS] Routine Reason for Physical Therapy: Weakness Evaluate and Treat 08/12/17 11:36 Consult to Physical Therapy [CONS] Routine Reason for Physical Therapy: Evaluate and Treat Consult Comment: Nonweightbearing on right 08/12/17 11:38 Consult to Case Mgmt/Social Srvs [CONS] Routine Reason for Case Mgmt/Social Srvs: Home Health Rehab Equipment 08/13/17 14:05 Consult to Physician [CONS] Routine Comment: chronic pain syndrome Consulting Provider: Jerica Charles Consulting Provider Notified: Yes When should Consulting Provider be notified: Now Consult Notification Comment: called Dr stoner hand.. 08/15/17 10:30 Consult to Physical Therapy [CONS] Routine Reason for Physical Therapy: Other Consult Comment: Deliver Standard Walker to Pt before D/C today for home rehab. Discharging clinician: Kathy River MD
[2017-08-15 11:03] VITALS: BP 133/60
--- NOTE | 2017-08-16 07:08 | Physician Query Form ---
CLICK EDIT DOCUMENT TO SELECT QUERY ANSWER --> OK --> SIGN PROVIDERS: Make your selection(s) from the choices in EACH section by typing an "x" and enter comments in the comment section. Please use your independent medical judgment in providing your response. This request does not imply that any particular answer is desired or expected. CLINICAL INDICATORS: (Providers should not edit this section) The medical record indicates that the patient was admitted with an ankle fx, on the 16th: "suspected bilateral mild infiltrates", on the 17th: shortness of breath, volume overload (acute), "sat's dropped into the upper 80's", and the patient was placed on IV Lasix. Based on the above, could you clarify the appropriate diagnosis, if significant , that supports the above abnormalities and additional evaluation, monitoring, and/or treatment rendered: ( x) Patient was monitored or treated for acute pulmonary edema ( ) Patient was not monitored or treated for acute pulmonary edema ( ) Other, please specify: ( ) Clinically unable to determine COMMENTS: PLEASE ALSO DOCUMENT RESPONSE IN PROGRESS NOTES AND/OR DISCHARGE SUMMARY Use of terms such as suspected, likely, or probable (associated with a specific diagnosis that is being evaluated, monitored, or treated as if it exists) are acceptable and can be restated in the discharge summary if not ruled out. MTDD
== END 2017-08-15 15:06 | disposition home health service (06) | DRG 492 ==
LOC: EDUNIT# → EDBD → N.ED 03:38 → N.EDINP 07:26 → SUATTDRO 07:26 → N.3E 08:17
PROVIDERS: ADMIT Internal Medicine; ATTEND Internal Medicine